=== PATIENT | male | born 1940 | race Caucasian/White ===

== ENCOUNTER → 2021-02-25 | Outpatient (CLI) | payer MEDICARE, BC ==
--- NOTE | 2021-02-25 11:18 | REP ---
INDICATION: UTI, HEMATURIA COMPARISON: None TECHNIQUE: Real time smith scale ultrasound examination using curved array transducer. FINDINGS: Bilateral kidneys are normal in contour, size, echogenicity, and reniform shape. Incidental increased central sinus fat consistent with chronic age-related renal disease. No hydronephrosis, nephrolithiasis, cystic or renal mass lesion. Bladder is grossly unremarkable. Right kidney measures 11.1 x 6.1 x 5.9 cm. Left kidney measures 11.6 x 5.1 x 5.1 cm. Prostate gland measures 4.0 x 4.4 x 3.8 cm (35 cc). IMPRESSION: Chronic medical renal disease. <Electronically signed by Ronald Centeno > 02/25/21 [id number]
== END ==
LOC: M RAD 10:44
DX: N39.0 Urinary tract infection, site not specified (principal)